=== PATIENT | male | born 1955 | race Caucasian/White ===

== ENCOUNTER 2018-09-30 16:12 | Inpatient (IN) | payer BC ==
[~2018-09-30] VITALS: Ht 177.8 cm; Wt 81.1 kg
[2018-09-30] MEDS ORDERED: metoprolol tartrate 1mg/ml inj IV ONE (17:00)
[2018-09-30] MEDS ORDERED: nitroGLYCERIN 0.4mg SUBLingual tab SL PRN ×2 (17:00→18:05)
[2018-09-30] MEDS ORDERED: aspirin 81mg tab.chew PO ONE (17:00)
[2018-09-30 17:19] LABS: BASOPHILS % (AUTO) 0.3 % (0-1); EOSINOPHILS # (AUTO) 0.1 X10'3 (0-0.9); EOSINOPHILS % (AUTO) 0.9 % (0-6); HEMATOCRIT 48.6 % (42.0-52.0); HEMOGLOBIN 16.7 g/dl (14.0-17.9); LYMPHOCYTES # (AUTO) 1.9 X10'3 (1.1-4.8); LYMPHOCYTES % (AUTO) 15.3 % (21-51); MEAN CORPUSCULAR HEMOGLOBIN 30.3 PG (27.0-31.0); MEAN CORPUSCULAR HGB CONC 34.3 g/dL (33.0-36.5); MEAN CORPUSCULAR VOLUME 88.2 FL (78-98); MEAN PLATELET VOLUME 8.9 FL (7.4-10.4); MONOCYTES % (AUTO) 7.8 % (2-12); NEUTROPHILS # (AUTO) 9.3 X10'3 (1.8-7.7); NEUTROPHILS % (AUTO) 75.7 % (42-75); PLATELET COUNT 317 X10'3 (140-440); RED BLOOD COUNT 5.51 X10'6 (4.70-6.10); RED CELL DISTRIBUTION WIDTH 12.5 % (11.5-14.5); WHITE BLOOD COUNT 12.2 X10'3 (4.5-11.0)
[2018-09-30 17:36] LABS: D-DIMER < 0.19 MG/L FEU (0-0.50)
[2018-09-30 17:39] LABS: ALANINE AMINOTRANSFERASE 74 U/L (12-78); ALBUMIN 4.3 G/DL (3.4-5.0); ALBUMIN/GLOBULIN RATIO 1.2 (1.1-1.5); ALKALINE PHOSPHATASE 113 IU/L (46-116); ANION GAP 12 (8-16); ASPARTATE AMINO TRANSFERASE 27 U/L (10-37); BILIRUBIN,TOTAL 0.3 MG/DL (0.1-1.0); BLOOD UREA NITROGEN 26 MG/DL (7-18); BUN/CREATININE RATIO 20.5 (5.4-32.0); CHLORIDE 97 MMOL/L (99-107); CREATININE 1.27 MG/DL (0.60-1.10); GLUCOSE 113 MG/DL (70-104); POTASSIUM 4.4 MMOL/L (3.5-5.1); SODIUM 131 MMOL/L (135-145); TOTAL CARBON DIOXIDE 22.4 MMOL/L (24-32); TOTAL PROTEIN 7.9 G/DL (6.4-8.2); eGFR 58 ML/MIN
[2018-09-30 17:43] LABS: MAGNESIUM 2.2 MG/DL (1.5-2.4)
[2018-09-30] MEDS ORDERED: AMLO10TA PO (18:03)
[2018-09-30] MEDS ORDERED: LISI-600 PO (18:04)
[2018-09-30] MEDS ORDERED: ESZO3TAB40 PO (18:04)
[2018-09-30] MEDS ORDERED: magnesium hydroxide 30ml (MOM) UD suspension PO PRN (18:05)
[2018-09-30] MEDS ORDERED: acetaminophen 325mg tablet PO PRN (18:05)
[2018-09-30] MEDS ORDERED: mag hydrox/Alum hydrox/simeth 30ml oral suspension PO PRN (18:05)
[2018-09-30] MEDS ORDERED: aminophylline 250mg/10ml inj. IV PRN (18:05)
[2018-09-30] MEDS ORDERED: ondansetron/PF 4mg/2ml inj IV PRN (18:05)
[2018-09-30] MEDS ORDERED: potassium Cl 20 mEq SR tablet PO PRN ×2 (18:05)
[2018-09-30] MEDS ORDERED: potassium CL 10mEq/100ml bag 100 ML IV PRN ×2 (18:05)
[2018-09-30] MEDS ORDERED: ALPR1TAB7 PO (18:05)
[2018-09-30] MEDS ORDERED: TRIA1TAB3 PO (18:05)
[2018-09-30] MEDS ORDERED: magnesium 4gm in 100ml NS 100 ML IV PRN (18:05)
[2018-09-30] MEDS ORDERED: metoprolol tartrate 1mg/ml inj IV PRN (18:05)
[2018-09-30] MEDS ORDERED: morphine 2 MG/ML inj. syringe IV PRN ×2 (18:05)
[2018-09-30] MEDS ORDERED: magnesium 2GM in 50ml NS 50 ML IV PRN (18:05)
[2018-09-30] MEDS ORDERED: regadenoson 0.4mg/5ml syringe IV PRN (18:05)
[2018-09-30] MEDS ORDERED: ROSU20TA2 PO (18:06)
[2018-09-30] MEDS ORDERED: FLUO20CA22 PO (18:07)
[2018-09-30] MEDS ORDERED: HYDR-3972 PO (18:08)
--- NOTE | 2018-09-30 19:43 | NUR ---
PATIENT ATE DINNER TRAY, SNACK OFFERED NPO STATUS DISCUSSED PT VERBALIZED UNDERSTANDING
--- NOTE | 2018-09-30 20:30 | NUR ---
DISCUSSED WITH PT MEDICATION HE TAKES AT BEDTIME. REQUESTED HE TAKE HIS XANAX AND AMBIEN AFTER 2129
[2018-09-30] MEDS: normal saline 1000ml 1,000 ML IV SCH (20:47)
[2018-09-30] MEDS: lisinopril 20mg tablet PO SCH (20:48)
[2018-09-30] MEDS ORDERED: HYDROcodone/acetaminophen 10/325mg tab PO ONE (21:00)
--- NOTE | 2018-09-30 21:45 | NUR ---
PATIENT AWAITING ROOM CONTENT IV PATENT
[2018-09-30] MEDS: ALPRAZolam 0.5mg tablet PO SCH (21:50)
[2018-09-30] MEDS: zolpidem 5mg tablet PO SCH (21:51)
--- NOTE | 2018-09-30 22:10 | NUR ---
ATTEMPTED TO CALL REPORT. WAS TOLD YOLANDA WOULD CALL BACK IN 3 MINS
--- NOTE | 2018-09-30 22:45 | NUR ---
PATIENT ADMITTED TO 347B FROM ER FOR CHEST PAIN, EVAL FOR HI. PLACED COMFORTABLE IN BED VITAL SIGNS TAKEN AND RECORDED.
[2018-10-01] VITALS (25 sets, daily range): BP systolic 99–182; BP diastolic 41–114
[2018-10-01] MEDS: normal saline 1000ml 1,000 ML IV SCH ×2 (05:10→14:03)
[2018-10-01 05:22] LABS: ALANINE AMINOTRANSFERASE 64 U/L (12-78); ALBUMIN 3.7 G/DL (3.4-5.0); ALBUMIN/GLOBULIN RATIO 1.2 (1.1-1.5); ALKALINE PHOSPHATASE 98 IU/L (46-116); ANION GAP 6 (8-16); ASPARTATE AMINO TRANSFERASE 24 U/L (10-37); BILIRUBIN,TOTAL 0.3 MG/DL (0.1-1.0); BLOOD UREA NITROGEN 27 MG/DL (7-18); BUN/CREATININE RATIO 23.3 (5.4-32.0); CALCIUM 9.2 MG/DL (8.5-10.1); CHLORIDE 100 MMOL/L (99-107); CREATININE 1.16 MG/DL (0.60-1.10); GLUCOSE 111 MG/DL (70-104); SODIUM 135 MMOL/L (135-145); TOTAL CARBON DIOXIDE 28.8 MMOL/L (24-32); TOTAL PROTEIN 6.7 G/DL (6.4-8.2); eGFR 64 ML/MIN
[2018-10-01 05:24] LABS: CHOLESTEROL 124 MG/DL (0-200); HDL CHOLESTEROL 25 MG/DL (35-60); LDL CHOLESTEROL 75 MG/DL (50-100); MAGNESIUM 1.9 MG/DL (1.5-2.4); TRIGLYCERIDES 218 MG/DL (20-135)
[2018-10-01 05:30] LABS: BASOPHILS % (AUTO) 0.3 % (0-1); EOSINOPHILS # (AUTO) 0.2 X10'3 (0-0.9); EOSINOPHILS % (AUTO) 2.1 % (0-6); HEMATOCRIT 44.7 % (42.0-52.0); HEMOGLOBIN 15.5 g/dl (14.0-17.9); LYMPHOCYTES # (AUTO) 2.9 X10'3 (1.1-4.8); LYMPHOCYTES % (AUTO) 31.4 % (21-51); MEAN CORPUSCULAR HEMOGLOBIN 30.6 PG (27.0-31.0); MEAN CORPUSCULAR HGB CONC 34.6 g/dL (33.0-36.5); MEAN CORPUSCULAR VOLUME 88.4 FL (78-98); MONOCYTES % (AUTO) 11.1 % (2-12); NEUTROPHILS # (AUTO) 5.2 X10'3 (1.8-7.7); NEUTROPHILS % (AUTO) 55.1 % (42-75); PLATELET COUNT 257 X10'3 (140-440); RED BLOOD COUNT 5.05 X10'6 (4.70-6.10); RED CELL DISTRIBUTION WIDTH 12.8 % (11.5-14.5); WHITE BLOOD COUNT 9.4 X10'3 (4.5-11.0)
--- NOTE | 2018-10-01 06:25 | NUR ---
Problems reprioritized. Patient report given, questions answered & plan of care reviewed with BARBARA SMITH.
--- NOTE | 2018-10-01 06:28 | NUR ---
Patient in room [facility]. I have received report from Susy SMITH and had the opportunity to ask questions and assume patient care.
[2018-10-01] MEDS: atorvastatin 20mg tablet PO SCH (07:32)
[2018-10-01] MEDS: FLUoxetine 20mg capsule PO SCH (07:32)
[2018-10-01] MEDS: lisinopril 20mg tablet PO SCH ×2 (07:37→22:00)
[2018-10-01] MEDS: triamterene/HCTZ 37.5/25mg tablet PO SCH (07:38)
[2018-10-01] MEDS ORDERED: heparin 25,000 UNIT/250ml bag 250 ML IV SCH (07:49)
[2018-10-01] MEDS ORDERED: heparin 10,000 units/1 ML INJ IV PRN (07:50)
[2018-10-01] MEDS ORDERED: heparin 10,000 units/1 ML INJ IV ONE (07:50)
[2018-10-01] MEDS: K and/or MAG REPLACEMENT MC SCH (08:00)
[2018-10-01] MEDS ORDERED: amLODIPine 5mg tablet PO SCH (08:00)
[2018-10-01] MEDS ORDERED: enoxaparin 40mg/0.4ml syringe SQ SCH (08:00)
[2018-10-01] MEDS ORDERED: enoxaparin 40mg/0.4ml syringe SQ ONE (08:35)
[2018-10-01] MEDS ORDERED: aminophylline inj. 10 ML IV ONE (09:05)
[2018-10-01 09:22] LABS: PARTIAL THROMBOPLASTIN TIME 31 SECONDS (22-32)
--- NOTE | 2018-10-01 09:34 | NUR ---
PATIENT WENT FOR STRESS TEST
[2018-10-01] MEDS: metoprolol succinate 25mg (24-HOUR) SR. Tablet PO SCH (11:30)
--- NOTE | 2018-10-01 16:29 | NUR ---
Dr Robb called to say that patient can be fed and he will come later to see him.
[2018-10-01] MEDS ORDERED: iohexol 350MG/ML 100ml bottle IV ONE ×2 (18:20→19:12)
[2018-10-01] MEDS ORDERED: iohexol 350 MG/ML 50ML vial IV ONE (18:20)
[2018-10-01] MEDS ORDERED: heparin 1,000unit/ml 10ml vial 10 ML ONE (18:20)
[2018-10-01] MEDS ORDERED: LIDOcaine 1% (10mg/ml)w/preservative injection 20ml MDV ONE (18:20)
[2018-10-01] MEDS ORDERED: fentaNYL/PF 50MCG/1 ML 2ML syringe ONE (18:20)
[2018-10-01] MEDS ORDERED: midazolam 2 mg/2 ml injection ONE (18:20)
[2018-10-01] MEDS ORDERED: nitroGLYCERIN-Tridil 50MG/D5W 250 ML IV ONE (18:24)
--- NOTE | 2018-10-01 18:37 | NUR ---
Dr de león into see patient is for cardiac cath tonight. Patient prepped for this. report given to Carly SMITH
--- NOTE | 2018-10-01 18:40 | NUR ---
Patient left to laborer prestressed concrete.
[2018-10-01] MEDS ORDERED: heparin 25,000 UNIT/250ml bag 250 ML IV ONE (19:02)
[2018-10-01] MEDS ORDERED: atorvastatin 20mg tablet PO SCH (19:05)
[2018-10-01] MEDS ORDERED: iohexol 350 MG/1 ML 200ml bottle ONE (19:31)
[2018-10-01] MEDS ORDERED: heparin 1,000 UNITS/NS 500ml 500 ML ONE (19:43)
--- NOTE | 2018-10-01 19:53 | NUR ---
REPORT GIVEN TO ICU NURSE. PATIENT WILL BE GOING TO ROOM 2040 AFTER WRAPPING MACHINE HELPER. ALL BELONGINGS WILL BE PACK AND SENT TO THE UNIT WITH PATIENT.
[2018-10-01] MEDS ORDERED: enoxaparin 80mg/0.8ml syringe SUBCUT SCH (20:00)
[2018-10-01] MEDS ORDERED: ticagrelor 90mg tablet ONE (20:10)
--- NOTE | 2018-10-01 20:45 | NUR ---
Patient received from Database Consultant and placed in room ICU 2040. I have received report from [employer] conservation laborer RN and had the opportunity to ask questions and assume patient care.
[2018-10-01] MEDS ORDERED: magnesium hydroxide 30ml (MOM) UD suspension PO PRN (21:00)
[2018-10-01] MEDS ORDERED: ticagrelor 90mg tablet PO ONE (21:00)
[2018-10-01] MEDS ORDERED: aspirin 81mg tab.chew PO ONE (21:00)
[2018-10-01] MEDS ORDERED: OXAZEpam 15mg capsule PO PRN (21:05)
[2018-10-01] MEDS ORDERED: cyclobenzaprine 10mg tablet PO PRN (21:05)
[2018-10-01] MEDS ORDERED: HYDROcodone/acetaminophen 10/325mg tab PO PRN (21:05)
[2018-10-01 21:51] LABS: BASOPHILS % (AUTO) 0.3 % (0-1); EOSINOPHILS # (AUTO) 0.1 X10'3 (0-0.9); EOSINOPHILS % (AUTO) 0.9 % (0-6); HEMATOCRIT 46.3 % (42.0-52.0); HEMOGLOBIN 15.7 g/dl (14.0-17.9); LYMPHOCYTES # (AUTO) 2.3 X10'3 (1.1-4.8); LYMPHOCYTES % (AUTO) 16.6 % (21-51); MEAN CORPUSCULAR HEMOGLOBIN 30.3 PG (27.0-31.0); MEAN CORPUSCULAR VOLUME 89.3 FL (78-98); MEAN PLATELET VOLUME 8.6 FL (7.4-10.4); MONOCYTES # (AUTO) 0.7 X10'3 (0-0.9); MONOCYTES % (AUTO) 4.8 % (2-12); NEUTROPHILS # (AUTO) 10.9 X10'3 (1.8-7.7); NEUTROPHILS % (AUTO) 77.4 % (42-75); PLATELET COUNT 293 X10'3 (140-440); RED BLOOD COUNT 5.18 X10'6 (4.70-6.10); RED CELL DISTRIBUTION WIDTH 12.4 % (11.5-14.5); WHITE BLOOD COUNT 14.1 X10'3 (4.5-11.0)
[2018-10-01] MEDS: zolpidem 5mg tablet PO SCH (21:59)
[2018-10-01] MEDS: heparin 10,000 units/1 ML INJ IV PRN (22:00)
[2018-10-01] MEDS: sodium bicarbonate (8.4%) inj. 100 MEQ in sodium chloride 0.45% 1,000 ML IV SCH (22:00)
[2018-10-01] MEDS: HYDROcodone/acetaminophen 10/325mg tab PO PRN (22:01)
[2018-10-01] MEDS: ALPRAZolam 0.5mg tablet PO SCH (22:02)
[2018-10-01] MEDS: acetylcysteine 200 MG/ml 4ml vial PO SCH (22:05)
[2018-10-01] MEDS: heparin 25,000 UNIT/250ml bag 250 ML IV SCH (22:14)
[2018-10-02] VITALS (31 sets, daily range): BP systolic 109–174; BP diastolic 55–85
[2018-10-02] MEDS: normal saline 1000ml 1,000 ML IV SCH ×3 (00:03→20:03)
--- NOTE | 2018-10-02 01:30 | NUR ---
Orders given to notify MD if ACT was lower than 210. ACT done on patient's arrival from cathode builder, value was 191. MD notified and 2000 units of Heparin bolus was ordered. This was given at 2200 but eMAR did not save, this was noticed at a later time and was put in manually with same RN that witnessed the heparin bolus.
[2018-10-02] MEDS: HYDROcodone/acetaminophen 10/325mg tab PO PRN (05:52)
[2018-10-02 06:13] LABS: BASOPHILS # (AUTO) 0.1 X10'3 (0-0.2); BASOPHILS % (AUTO) 0.4 % (0-1); EOSINOPHILS # (AUTO) 0.1 X10'3 (0-0.9); EOSINOPHILS % (AUTO) 0.9 % (0-6); HEMATOCRIT 44.1 % (42.0-52.0); LYMPHOCYTES # (AUTO) 2.6 X10'3 (1.1-4.8); LYMPHOCYTES % (AUTO) 21.3 % (21-51); MEAN CORPUSCULAR HEMOGLOBIN 30.2 PG (27.0-31.0); MEAN CORPUSCULAR HGB CONC 33.9 g/dL (33.0-36.5); MEAN PLATELET VOLUME 8.4 FL (7.4-10.4); NEUTROPHILS # (AUTO) 8.5 X10'3 (1.8-7.7); NEUTROPHILS % (AUTO) 69.4 % (42-75); PLATELET COUNT 264 X10'3 (140-440); RED BLOOD COUNT 4.96 X10'6 (4.70-6.10); RED CELL DISTRIBUTION WIDTH 12.4 % (11.5-14.5); WHITE BLOOD COUNT 12.3 X10'3 (4.5-11.0)
--- NOTE | 2018-10-02 06:29 | NUR ---
Problems reprioritized. Patient report given, questions answered & plan of care reviewed with SARAH Gibson.
[2018-10-02 06:36] LABS: ALANINE AMINOTRANSFERASE 79 U/L (12-78); ALBUMIN 3.4 G/DL (3.4-5.0); ALBUMIN/GLOBULIN RATIO 1.1 (1.1-1.5); ALKALINE PHOSPHATASE 89 IU/L (46-116); ANION GAP 8 (8-16); ASPARTATE AMINO TRANSFERASE 30 U/L (10-37); BILIRUBIN,TOTAL 0.5 MG/DL (0.1-1.0); BLOOD UREA NITROGEN 16 MG/DL (7-18); BUN/CREATININE RATIO 15.2 (5.4-32.0); CALCIUM 8.4 MG/DL (8.5-10.1); CHLORIDE 99 MMOL/L (99-107); CREATININE 1.05 MG/DL (0.60-1.10); GLUCOSE 113 MG/DL (70-104); MAGNESIUM 1.6 MG/DL (1.5-2.4); POTASSIUM 4.2 MMOL/L (3.5-5.1); SODIUM 133 MMOL/L (135-145); TOTAL CARBON DIOXIDE 25.6 MMOL/L (24-32); TOTAL PROTEIN 6.4 G/DL (6.4-8.2); eGFR 72 ML/MIN
[2018-10-02] MEDS: metoprolol succinate 25mg (24-HOUR) SR. Tablet PO SCH (08:00)
[2018-10-02] MEDS: lisinopril 20mg tablet PO SCH ×2 (08:00→20:34)
[2018-10-02] MEDS: K and/or MAG REPLACEMENT MC SCH (08:00)
[2018-10-02] MEDS: triamterene/HCTZ 37.5/25mg tablet PO SCH (08:00)
--- NOTE | 2018-10-02 08:00 | NUR ---
Dr. Gibbs at bedside to assess patient. SBP on blood pressure cuff at low 100s, orders to hold AM blood pressure medications. Also, per Dr. iGbbs, he will take the patient back to the quality assurance/r&d lab technician around 1230.
[2018-10-02] MEDS: heparin 10,000 units/1 ML INJ IV PRN (08:01)
[2018-10-02] MEDS: heparin 25,000 UNIT/250ml bag 250 ML IV SCH (08:02)
[2018-10-02] MEDS: docusate sod 100mg capsule PO SCH ×3 (08:03→20:34)
[2018-10-02] MEDS: ticagrelor 90mg tablet PO SCH ×2 (08:03→20:35)
[2018-10-02] MEDS: aspirin 81mg tab.chew PO SCH (08:04)
[2018-10-02] MEDS: FLUoxetine 20mg capsule PO SCH (08:04)
[2018-10-02] MEDS: atorvastatin 20mg tablet PO SCH (08:05)
[2018-10-02] MEDS: sodium bicarbonate (8.4%) inj. 100 MEQ in sodium chloride 0.45% 1,000 ML IV SCH ×2 (08:05→20:40)
[2018-10-02] MEDS ORDERED: HYDROcodone/acetaminophen 10/325mg tab PO PRN ×3 (09:55→14:35)
[2018-10-02] MEDS ORDERED: fentaNYL/PF 50MCG/1 ML 2ML syringe ONE (12:00)
[2018-10-02] MEDS ORDERED: midazolam 2 mg/2 ml injection ONE (12:00)
[2018-10-02] MEDS ORDERED: heparin 1,000unit/ml 10ml vial 10 ML ONE (12:01)
[2018-10-02] MEDS ORDERED: iohexol 350 MG/1 ML 200ml bottle ONE (12:01)
[2018-10-02] MEDS ORDERED: nitroGLYCERIN-Tridil 50MG/D5W 250 ML IV ONE (12:01)
[2018-10-02] MEDS ORDERED: heparin 1,000 UNITS/NS 500ml 500 ML ONE ×2 (12:01)
[2018-10-02] MEDS ORDERED: LIDOcaine 1% (10mg/ml)w/preservative injection 20ml MDV ONE (12:01)
--- NOTE | 2018-10-02 12:17 | NUR ---
Patient down to aquatic life laborer
[2018-10-02] MEDS ORDERED: ticagrelor 90mg tablet ONE (13:19)
[2018-10-02] MEDS ORDERED: OXAZEpam 15mg capsule PO PRN (14:35)
[2018-10-02] MEDS ORDERED: magnesium hydroxide 30ml (MOM) UD suspension PO PRN (14:35)
[2018-10-02] MEDS ORDERED: proCHLORperazine 10 MG/2 ml inj IV PRN (14:35)
[2018-10-02] MEDS ORDERED: cyclobenzaprine 10mg tablet PO PRN (14:35)
[2018-10-02] MEDS ORDERED: acetaminophen 325mg tablet PO PRN (14:35)
[2018-10-02] MEDS ORDERED: aspirin 81mg tab.chew PO ONE (14:40)
--- NOTE | 2018-10-02 15:00 | NUR ---
Heparin gtt stopped at 1500, hold off on ptt for Heparin gtt per Dr. Gibbs as patient received Heparin in the veterinary laboratory diagnostician. Will check ACT at 1530.
--- NOTE | 2018-10-02 18:27 | NUR ---
Problems reprioritized. Patient report given, questions answered & plan of care reviewed with Magalie SMITH.
--- NOTE | 2018-10-02 18:30 | NUR ---
Patient in room ICU 2040. I have received report from SARAH Gibson and had the opportunity to ask questions and assume patient care.
[2018-10-02] MEDS: acetylcysteine 200 MG/ml 4ml vial PO SCH (20:39)
[2018-10-02] MEDS ORDERED: ESZOPICLONE 3 MG PO SCH (21:00)
[2018-10-02] MEDS: ALPRAZolam 0.5mg tablet PO SCH (21:13)
[2018-10-03] VITALS (14 sets, daily range): BP systolic 111–140; BP diastolic 45–79
[2018-10-03 05:24] LABS: BASOPHILS % (AUTO) 0.2 % (0-1); EOSINOPHILS # (AUTO) 0.2 X10'3 (0-0.9); EOSINOPHILS % (AUTO) 1.7 % (0-6); HEMATOCRIT 42.6 % (42.0-52.0); HEMOGLOBIN 14.2 g/dl (14.0-17.9); LYMPHOCYTES # (AUTO) 2.1 X10'3 (1.1-4.8); LYMPHOCYTES % (AUTO) 18.5 % (21-51); MEAN CORPUSCULAR HGB CONC 33.3 g/dL (33.0-36.5); MEAN CORPUSCULAR VOLUME 90.2 FL (78-98); MEAN PLATELET VOLUME 8.6 FL (7.4-10.4); MONOCYTES % (AUTO) 9.1 % (2-12); NEUTROPHILS % (AUTO) 70.5 % (42-75); PLATELET COUNT 233 X10'3 (140-440); RED BLOOD COUNT 4.72 X10'6 (4.70-6.10); RED CELL DISTRIBUTION WIDTH 12.4 % (11.5-14.5); WHITE BLOOD COUNT 11.4 X10'3 (4.5-11.0)
[2018-10-03 05:49] LABS: ALANINE AMINOTRANSFERASE 76 U/L (12-78); ALBUMIN 3.2 G/DL (3.4-5.0); ALKALINE PHOSPHATASE 92 IU/L (46-116); ANION GAP 5 (8-16); ASPARTATE AMINO TRANSFERASE 29 U/L (10-37); BILIRUBIN,TOTAL 0.5 MG/DL (0.1-1.0); BLOOD UREA NITROGEN 18 MG/DL (7-18); BUN/CREATININE RATIO 15.5 (5.4-32.0); CALCIUM 8.2 MG/DL (8.5-10.1); CHLORIDE 98 MMOL/L (99-107); CREATININE 1.16 MG/DL (0.60-1.10); GLUCOSE 113 MG/DL (70-104); MAGNESIUM 1.5 MG/DL (1.5-2.4); POTASSIUM 4.2 MMOL/L (3.5-5.1); SODIUM 135 MMOL/L (135-145); TOTAL CARBON DIOXIDE 32.2 MMOL/L (24-32); TOTAL PROTEIN 6.3 G/DL (6.4-8.2); eGFR 64 ML/MIN
[2018-10-03] MEDS: sodium bicarbonate (8.4%) inj. 100 MEQ in sodium chloride 0.45% 1,000 ML IV SCH (06:00)
[2018-10-03] MEDS: normal saline 1000ml 1,000 ML IV SCH (06:03)
--- NOTE | 2018-10-03 06:16 | NUR ---
Problems reprioritized. Patient report given, questions answered & plan of care reviewed with SARAH Gibson.
[2018-10-03] MEDS: docusate sod 100mg capsule PO SCH ×2 (06:21→08:37)
[2018-10-03] MEDS: K and/or MAG REPLACEMENT MC SCH (08:00)
[2018-10-03] MEDS: acetylcysteine 200 MG/ml 4ml vial PO SCH (08:35)
[2018-10-03] MEDS: triamterene/HCTZ 37.5/25mg tablet PO SCH (08:36)
[2018-10-03] MEDS: metoprolol succinate 25mg (24-HOUR) SR. Tablet PO SCH (08:37)
[2018-10-03] MEDS: aspirin 81mg tab.chew PO SCH (08:37)
[2018-10-03] MEDS: ticagrelor 90mg tablet PO SCH (08:37)
[2018-10-03] MEDS: FLUoxetine 20mg capsule PO SCH (08:37)
[2018-10-03] MEDS: atorvastatin 20mg tablet PO SCH (08:37)
[2018-10-03] MEDS: lisinopril 20mg tablet PO SCH (11:03)
[2018-10-03] MEDS ORDERED: TICA90TA PO (12:02)
[2018-10-03] MEDS ORDERED: ASPI-1265 PO (12:02)
[2018-10-03] MEDS ORDERED: METO-395 PO (12:02)
--- NOTE | 2018-10-03 13:55 | NUR ---
Discharge education given to patient including the importance of medications, follow-up, and warning signs and symptoms; all questions answered. Patient given stent ID card, Angiogram ID card, and home Lunesta from the pharmacy. IV removed and cannula intact. Patient wheeled down to lobby with all belongings.
== END 2018-10-03 13:55 | disposition home or self-care (01) | DRG 247 ==
LOC: ER 16:16 → OBSVTOIN 21:27 → SUR 3N 21:27 → CMPBEDREQ 10-01 00:58 → ICU 2S 10-01 20:41
PROVIDERS: ADMIT Family Medicine; ATTEND Family Medicine
PROC: 4A023N7 Measurement of Cardiac Sampling and Pressure, Left Heart, Percutaneous Approach (ICD-10-PCS; principal; 2018-10-01)
PROC: 027135Z Dilation of Coronary Artery, Two Arteries with Two Drug-eluting Intraluminal Devices, Percutaneous Approach (ICD-10-PCS; 2018-10-01)
PROC: B2111ZZ Fluoroscopy of Multiple Coronary Arteries using Low Osmolar Contrast (ICD-10-PCS; 2018-10-01)
PROC: B2151ZZ Fluoroscopy of Left Heart using Low Osmolar Contrast (ICD-10-PCS; 2018-10-01)
PROC: 4A02XM4 Measurement of Cardiac Total Activity, External Approach (ICD-10-PCS; 2018-10-01)
PROC: 3E033HZ Introduction of Radioactive Substance into Peripheral Vein, Percutaneous Approach (ICD-10-PCS; 2018-10-01)
PROC: 027034Z Dilation of Coronary Artery, One Artery with Drug-eluting Intraluminal Device, Percutaneous Approach (ICD-10-PCS; 2018-10-02)
DX: I20.0 Unstable angina (principal); E87.1 Hypo-osmolality and hyponatremia; D72.829 Elevated white blood cell count, unspecified; E78.00 Pure hypercholesterolemia, unspecified; E78.5 Hyperlipidemia, unspecified; F32.9 Major depressive disorder, single episode, unspecified; F41.9 Anxiety disorder, unspecified; M54.9 Dorsalgia, unspecified; R73.01 Impaired fasting glucose; G89.29 Other chronic pain; I10 Essential (primary) hypertension; N28.9 Disorder of kidney and ureter, unspecified; Z82.49 Family history of ischemic heart disease and other diseases of the circulatory system; Z83.3 Family history of diabetes mellitus; Z79.899 Other long term (current) drug therapy
CPT/HCPCS: 92921; 93306; 93458; 96374; 99285; C9600; 36415; 71045; 78452; 80053; 80061; 82948; 83735; 83880; 84484; 85025; 85347; 85379; 85610; 85730; 87081; 93005; 93017; 99152; 99153; A4620; A6258; A9500; C1725; C1769; C1874; G0378; J0280; J1644; J1650; J2001; J2250; J2785; J3010; J3490; J7030; Q9967

== ENCOUNTER 2020-07-29 23:45 | Emergency (ER) | payer BC ==
[~2020-07-29] VITALS: Ht 177.8 cm; Wt 97.7 kg
[~2020-07-29 23:45] MED LIST: ALPR1TAB7 PO; ASPI-1265 PO; ESZO3TAB40 PO; FLUO-167 PO; HYDR-3972 PO; LISI20TA28 PO; METO-395 PO; ROSU20TA2 PO; TICA90TA PO; TRIA1TAB3 PO
[2020-07-30 00:09] VITALS: BP 143/70
[2020-07-30] MEDS ORDERED: CYCL-1 PO (01:23)
[2020-07-30] MEDS ORDERED: ketorolac trometh. 30mg/ml inj. IM ONE (01:30)
== END 2020-07-30 03:28 | disposition home or self-care (01) ==
LOC: ER 23:46
DX: S33.5XXA Sprain of ligaments of lumbar spine, initial encounter (principal); G89.29 Other chronic pain; E78.00 Pure hypercholesterolemia, unspecified; I10 Essential (primary) hypertension; Z79.82 Long term (current) use of aspirin; Z79.899 Other long term (current) drug therapy; X50.0XXA Overexertion from strenuous movement or load, initial encounter; Y93.89 Activity, other specified; Y92.89 Other specified places as the place of occurrence of the external cause; Y99.8 Other external cause status
CPT/HCPCS: 96372; 99283; J1885